=== PATIENT | male | born 1975 | race African-American/Black ===

== ENCOUNTER 2019-12-03 15:06 | Emergency (ER) | payer SELFPAY ==
[~2019-12-03] VITALS: Ht 165.1 cm; Wt 78.0 kg
[2019-12-03] MEDS ORDERED: ONDANSETRON HCL 4MG/2ML INJ IV STA (15:18)
[2019-12-03] MEDS ORDERED: SODIUM CHLORIDE 0.9% 1,000 ML IV ONE (15:18)
[2019-12-03] MEDS ORDERED: MORPHINE SULFATE 4 MG/ML CPJ (NOT FOR IM USE) IV STA (15:18)
[2019-12-03] MEDS ORDERED: TETANUS, DIPHTHERIA, PERTUSSIS VAC/PF 0.5ML (>7YR OLD) IM ONE (15:30)
[2019-12-03 15:55] LABS: BASOPHILS % 0.8 % (0.0-2.0); EOSINOPHILS % 1.4 % (0.0-5.0); HEMATOCRIT. 40.1 % (42.0-52.0); HEMOGLOBIN. 13.1 g/dL (14.0-18.0); MEAN CORPUSCULAR HEMOGLOBIN 26.5 pg (28.0-32.0); MEAN PLATELET VOLUME 8.5 fl (7.4-10.4); MONOCYTES % 13.8 % (2.0-8.0); PLATELET 379 x1000/uL (130-400); RED BLOOD CELL COUNT 4.95 mill/uL (4.7-6.1); RED CELL DISTRIBUTION WIDTH 14.6 % (11.6-14.6)
[2019-12-03 15:58] LABS: CHLORIDE 110 mEq/L (98-107)
[2019-12-03 16:01] LABS: INR 1.1; PROTHROMBIN TIME 11.2 sec (9.6-11.0)
[2019-12-03 16:04] VITALS: BP 120/88
== END 2019-12-03 17:04 ==
LOC: ER 15:06
DX: S31.114A Laceration without foreign body of abdominal wall, left lower quadrant without penetration into peritoneal cavity, initial encounter (principal); X99.9XXA Assault by unspecified sharp object, initial encounter; Y93.89 Activity, other specified; Y92.511 Restaurant or cafe as the place of occurrence of the external cause
CPT/HCPCS: 36415; 71045; 74018; 80053; 85025; 85610; 85730; 86850; 86900; 86901; 90471; 90715; 93005; 96374; 96375; 99285; J2270; J2405; J7030